=== PATIENT | female | born 1980 | race Caucasian/White ===

== ENCOUNTER 2020-07-06 08:16 | Emergency (ER) | payer MEDICAID ==
[~2020-07-06] VITALS: Ht 154.9 cm; Wt 61.4 kg
[2020-07-06 08:21] VITALS: BP 122/70
[2020-07-06] MEDS ORDERED: HYDROcodone/acetaminophen 5mg/325mg tablet PO STA (08:29)
[2020-07-06] MEDS ORDERED: HYDR-3965 PO (09:59)
== END 2020-07-06 10:16 | disposition home or self-care (01) ==
LOC: ER 08:17
DX: S40.011A Contusion of right shoulder, initial encounter (principal); M25.511 Pain in right shoulder; V80.010A Animal-rider injured by fall from or being thrown from horse in noncollision accident, initial encounter; Y93.89 Activity, other specified; Y92.89 Other specified places as the place of occurrence of the external cause; Y99.8 Other external cause status
CPT/HCPCS: 73030; 99283

== ENCOUNTER 2020-11-24 10:16 | Emergency (ER) | payer MEDICAID ==
[~2020-11-24] VITALS: Ht 154.9 cm; Wt 61.0 kg
[2020-11-24] MEDS ORDERED: acetaminophen 325mg tablet PO ONE (12:35)
[2020-11-24] MEDS ORDERED: LIDOcaine Viscous 15ml cup MM PRN (12:45)
[2020-11-24] MEDS ORDERED: mag hydrox/Alum hydrox/simeth 30ml oral suspension PO ONE ×2 (12:45)
[2020-11-24] MEDS ORDERED: LIDOcaine Viscous 15ml cup TP ONE (12:45)
--- NOTE | 2020-11-24 12:45 | NUR ---
DISCUSSED PT'S C/O 'bubble in stomach' with oneal Franco. New orders received for Viscous lidocaine and Maalox.
--- NOTE | 2020-11-24 12:54 | NUR ---
pt swalled small amouot of viscous lidocain and maalox mixed and immediately became anxious 'saying 'my throat feels worse. i cant drink more.' none more given. water provided for comfort along with reassurance.
[2020-11-24 13:42] VITALS: BP 111/71
== END 2020-11-24 13:44 | disposition home or self-care (01) ==
LOC: ER 10:17
DX: J02.9 Acute pharyngitis, unspecified (principal); R11.10 Vomiting, unspecified
CPT/HCPCS: 71046; 99284

== ENCOUNTER 2021-02-09 12:34 | Emergency (ER) | payer MEDICAID ==
[~2021-02-09] VITALS: Ht 154.9 cm; Wt 63.0 kg
[2021-02-09 12:45] VITALS: BP 127/94
[2021-02-09 13:07] LABS: CLARITY,URINE SLIGHTLY CLOUDY (Clear); COLOR,URINE YELLOW (Yellow); GLUCOSE, URINE NEGATIVE (Neg); KETONES,URINE NEGATIVE (Neg); LEUKOCYTE ESTERASE ,URINE LARGE (Neg); NITRITES, URINE POSITIVE (Neg); OCCULT BLOOD,URINE LARGE (Neg); PROTEIN,URINE NEGATIVE (Neg); UROBILINOGEN,URINE 0.2 E.U/dL (0.2-1.0)
[2021-02-09 13:08] LABS: URINE HCG NEGATIVE (NEG)
[2021-02-09 13:10] LABS: UA COLLECTION TYPE CLN CATCH MIDSTREAM
[2021-02-09 13:12] LABS: WBC,URINE TNTC /HPF (0-4)
[2021-02-09 13:13] LABS: BACTERIA,URINE 4+ /HPF (Neg); RBC,URINE 50-100 /HPF (0-2); SQUAMOUS EPITHELIAL CELL,UR MODERATE /LPF (FEW); WBC CLUMPS,URINE FEW /HPF (NEGATIVE)
[2021-02-09] MEDS ORDERED: SULF1TAB49 PO (14:01)
[2021-02-09] MEDS ORDERED: DOXY100C97 PO (14:04)
[2021-02-09] MEDS ORDERED: CefTRIAXone 1000mg IM Kit (w/lidocaine diluent) IM SCH (14:05)
[2021-02-09] MEDS ORDERED: CefTRIAXone 1000mg IM Kit (w/lidocaine diluent) IM ONE (14:05)
== END 2021-02-09 14:17 | disposition home or self-care (01) ==
LOC: ER 12:35
DX: Z11.3 Encounter for screening for infections with a predominantly sexual mode of transmission (principal); N39.0 Urinary tract infection, site not specified; R39.15 Urgency of urination; Z79.2 Long term (current) use of antibiotics
CPT/HCPCS: 36415; 81001; 81025; 87077; 87088; 87186; 87491; 99283

== ENCOUNTER 2021-06-27 11:12 | Emergency (ER) | payer MEDICAID ==
[~2021-06-27] VITALS: Ht 154.9 cm; Wt 61.4 kg
[2021-06-27 11:26] VITALS: BP 115/83
[2021-06-27] MEDS ORDERED: METH4TAB3 PO (11:47)
[2021-06-27] MEDS ORDERED: ALBU6.7H9 INH (11:47)
== END 2021-06-27 12:47 | disposition home or self-care (01) ==
LOC: ER 11:13
DX: J06.9 Acute upper respiratory infection, unspecified (principal); J45.909 Unspecified asthma, uncomplicated
CPT/HCPCS: 71045; 99283

== ENCOUNTER 2021-11-11 08:57 | Emergency (ER) | payer MEDICAID ==
[~2021-11-11] VITALS: Ht 154.9 cm; Wt 132.0 kg
[2021-11-11 08:57] VITALS: BP 134/80
[~2021-11-11 08:57] MED LIST: ALBU6.7H9 INH; METH4TAB3 PO
== END 2021-11-11 09:30 | disposition home or self-care (01) ==
LOC: ER 08:58
DX: H66.91 Otitis media, unspecified, right ear (principal); Z88.6 Allergy status to analgesic agent; Z79.899 Other long term (current) drug therapy
CPT/HCPCS: 99282